=== PATIENT | female | born 1955 | race African-American/Black ===

== ENCOUNTER 2017-05-27 11:40 | Inpatient (IN) | payer MEDICARE, MEDICAID ==
[~2017-05-27] VITALS: Ht 154.9 cm; Wt 99.8 kg
[~2017-05-27 11:40] MED LIST: AMLO5TAB4 PO; AMOX500T2 PO; DIAZ10TA4 PO; GLIM1TAB2; HYDR12.529 PO; LOSA50TA20 PO; METF500T4 PO; MIRT15TA6 PO; POTA10CA42; QUET25TA PO; TRAM50TA3 PO; ZOLP5TAB2
[2017-05-27 13:37] LABS: BASOPHILS % 0.5 % (0.0-2.0); EOSINOPHILS % 0.3 % (0.0-5.0); HEMATOCRIT. 43.2 % (36.0-48.0); HEMOGLOBIN. 14.4 g/dL (12.0-16.0); LYMPHOCYTES % 40.6 % (20.0-50.0); MEAN PLATELET VOLUME 9.1 fl (7.4-10.4); MONOCYTES % 10.1 % (2.0-8.0); NEUTROPHILS % 48.5 % (40.0-76.0); PLATELET 187 x1000/uL (130-400); RED BLOOD CELL COUNT 5.14 mill/uL (4.2-5.4); RED CELL DISTRIBUTION WIDTH 13.9 % (11.6-14.6)
[2017-05-27 13:52] LABS: CARBON DIOXIDE 27 mEq/L (21-32); CHLORIDE 101 mEq/L (98-107)
[2017-05-27 20:00] VITALS: BP_SYST 134; BP_SYST 98; BP_DIAS 49; BP_DIAS 84
[2017-05-27] MEDS ORDERED: GLIP5TAB12 PO (21:22)
[2017-05-27] MEDS ORDERED: ZOLPIDEM TARTRATE 5MG TABLET PO PRN (22:15)
[2017-05-27] MEDS ORDERED: ASPI-1159 PO (22:24)
[2017-05-27] MEDS ORDERED: CLONIDINE 0.1MG TABLET PO PRN (22:27)
[2017-05-27] MEDS: BLOOD SUGAR DIAGNOSTIC STRIP TEST SCH (22:27)
[2017-05-27] MEDS ORDERED: MORPHINE SULFATE 4 MG/ML CPJ (NOT FOR IM USE) IV PRN (22:27)
[2017-05-27] MEDS ORDERED: IPRATROPIUM/ALBUTEROL 0.5-3(2.5)MG/3ML NEB HHN PRN (22:28)
[2017-05-27] MEDS ORDERED: ONDANSETRON HCL 4MG/2ML VIAL IV PRN (22:28)
[2017-05-27] MEDS ORDERED: POTASSIUM CHLORIDE 20MEQ TABLET SR PO NR (22:29)
[2017-05-27] MEDS ORDERED: DEXTROSE 50% WATER 50ML SYRINGE IV PRN (22:30)
[2017-05-27] MEDS: INSULIN LISPRO 100 UNITS/ML SUBCUT SCH (22:56)
[2017-05-28] VITALS: BP 118/74
[2017-05-28 00:09] LABS: CREATINE KINASE MB FRACTION 1.2 ng/mL (0.5-3.6); TROPONIN I 0.07 ng/mL (0.00-0.04)
[2017-05-28 04:00] VITALS: BP 112/75
[2017-05-28 06:46] LABS: BASOPHILS % 0.2 % (0.0-2.0); EOSINOPHILS % 0.3 % (0.0-5.0); HEMATOCRIT. 39.2 % (36.0-48.0); HEMOGLOBIN. 12.8 g/dL (12.0-16.0); LYMPHOCYTES % 38.1 % (20.0-50.0); MEAN CORPUSCULAR HEMOGLOBIN 27.6 pg (28.0-32.0); MEAN CORPUSCULAR VOLUME 84.3 fL (81.0-99.0); MEAN PLATELET VOLUME 9.3 fl (7.4-10.4); MONOCYTES % 11.6 % (2.0-8.0); NEUTROPHILS % 49.8 % (40.0-76.0); PLATELET 176 x1000/uL (130-400); RED BLOOD CELL COUNT 4.65 mill/uL (4.2-5.4); RED CELL DISTRIBUTION WIDTH 13.7 % (11.6-14.6)
[2017-05-28 07:15] LABS: CARBON DIOXIDE 27 mEq/L (21-32); CREATINE KINASE 102 IU/L (26-192); CREATINE KINASE MB FRACTION 0.8 ng/mL (0.5-3.6); HDL CHOLESTEROL 35 mg/dL (40-59); LDL CHOLESTEROL 97 mg/dL (5-100); TROPONIN I 0.06 ng/mL (0.00-0.04)
[2017-05-28] MEDS ORDERED: GLIPIZIDE 5MG TABLET PO SCH (07:40)
[2017-05-28 07:57] LABS: CHLORIDE 101 mEq/L (98-107)
[2017-05-28 08:00] VITALS: BP 110/73
[2017-05-28] MEDS ORDERED: METFORMIN HCL 850MG TABLET PO SCH (08:10)
[2017-05-28] MEDS: BLOOD SUGAR DIAGNOSTIC STRIP TEST SCH ×2 (08:26→12:49)
[2017-05-28] MEDS: INSULIN LISPRO 100 UNITS/ML SUBCUT SCH ×2 (08:32→13:38)
[2017-05-28] MEDS ORDERED: ENOXAPARIN 40MG/0.4ML SYR SUBCUT SCH (09:00)
[2017-05-28] MEDS ORDERED: ENOXAPARIN 30MG/0.3ML SYR SUBCUT SCH (09:00)
[2017-05-28] MEDS ORDERED: LOSARTAN POTASSIUM 50 MG TABLET PO SCH (09:00)
[2017-05-28] MEDS ORDERED: ASPIRIN 81MG EC TABLET PO SCH (09:00)
[2017-05-28] MEDS ORDERED: AMLODIPINE 5MG TABLET PO SCH (09:00)
[2017-05-28] MEDS ORDERED: HYDROCHLOROTHIAZIDE 12.5MG CAPSULE PO SCH (09:00)
[2017-05-28 12:00] VITALS: BP 131/73
[2017-05-28 13:15] VITALS: BP 141/72
== END 2017-05-28 13:40 | disposition home or self-care (01) | DRG 305 ==
LOC: ER 12:14 → EDBEDREQ 15:28 → 7WST 16:07 → EDBEDREQ 16:17 → ENRESERV 17:06
PROVIDERS: ADMIT Hospitalist; ATTEND Hospitalist
DX: I16.0 Hypertensive urgency (principal); E11.65 Type 2 diabetes mellitus with hyperglycemia; R07.89 Other chest pain; I10 Essential (primary) hypertension; Z79.2 Long term (current) use of antibiotics; Z79.899 Other long term (current) drug therapy; Z90.49 Acquired absence of other specified parts of digestive tract
CPT/HCPCS: 36415; 71010; 80048; 80053; 80061; 82550; 82553; 82962; 84484; 85025; 93005; 93306; 99285; J1650; J1815

== ENCOUNTER 2018-08-06 15:02 | Emergency (ER) | payer MEDICARE, MEDICAID ==
[~2018-08-06] VITALS: Ht 154.9 cm; Wt 100.0 kg
[~2018-08-06 15:02] MED LIST changes: +ASPI-1159 PO; +GLIP5TAB12 PO; +METF-414 PO; -METF500T4 PO
[2018-08-06 20:20] LABS: BASOPHILS % 0.4 % (0.0-2.0); EOSINOPHILS % 0.3 % (0.0-5.0); HEMATOCRIT. 41.5 % (36.0-48.0); HEMOGLOBIN. 13.8 g/dL (12.0-16.0); LYMPHOCYTES % 46.3 % (20.0-50.0); MEAN CORPUSCULAR VOLUME 84.4 fL (81.0-99.0); MEAN PLATELET VOLUME 9.3 fl (7.4-10.4); MONOCYTES % 9.9 % (2.0-8.0); NEUTROPHILS % 43.1 % (40.0-76.0); PLATELET 198 x1000/uL (130-400); RED BLOOD CELL COUNT 4.92 mill/uL (4.2-5.4); RED CELL DISTRIBUTION WIDTH 14.1 % (11.6-14.6)
[2018-08-06 20:28] LABS: CHLORIDE 104 mEq/L (98-107)
[2018-08-06 21:17] VITALS: BP 133/90
== END 2018-08-06 21:26 | disposition home or self-care (01) ==
LOC: ER 15:02
DX: E11.65 Type 2 diabetes mellitus with hyperglycemia (principal); J06.9 Acute upper respiratory infection, unspecified; Z90.49 Acquired absence of other specified parts of digestive tract; Z79.82 Long term (current) use of aspirin
CPT/HCPCS: 36415; 80048; 82962; 99283

== ENCOUNTER 2019-07-02 09:40 | Emergency (ER) | payer OTHER, MEDICARE, MEDICAID ==
[~2019-07-02] VITALS: Ht 154.9 cm; Wt 98.0 kg
[~2019-07-02 09:40] MED LIST changes: -ASPI-1159 PO; +ASPI-1393 PO; -LOSA50TA20 PO; +LOSA50TA41 PO
[2019-07-02 09:54] VITALS: BP 161/84
[2019-07-02 12:41] LABS: HEPATITIS B SURFACE AB > 1000.0 mIU/mL
[2019-07-02 12:51] LABS: HEPATITIS B SURFACE ANTIGEN NEGATIVE
[2019-07-04 04:07] LABS: HIV SCREEN 4G Non Reactive (Non Reactive)
== END 2019-07-02 11:50 | disposition home or self-care (01) ==
LOC: ER 10:03
DX: S60.931A Unspecified superficial injury of right thumb, initial encounter (principal); I10 Essential (primary) hypertension; E11.9 Type 2 diabetes mellitus without complications; Z90.49 Acquired absence of other specified parts of digestive tract; W46.1XXA Contact with contaminated hypodermic needle, initial encounter; Y93.89 Activity, other specified; Y92.89 Other specified places as the place of occurrence of the external cause; Y99.8 Other external cause status; Z98.890 Other specified postprocedural states
CPT/HCPCS: 36415; 87389; 99283

== ENCOUNTER 2021-12-14 09:29 | Emergency (ER) | payer BC, MEDICAID ==
[~2021-12-14] VITALS: Ht 154.9 cm; Wt 100.0 kg
[~2021-12-14 09:29] MED LIST changes: -ASPI-1393 PO; +ASPI-1497 PO; +GLIM1TAB; -GLIM1TAB2; +MIRT-89 PO; -MIRT15TA6 PO
[2021-12-14] MEDS ORDERED: BO1 TP (10:58)
[2021-12-14 11:17] VITALS: BP 161/91
== END 2021-12-14 12:00 | disposition home or self-care (01) ==
LOC: ER 11:59
DX: R60.9 Edema, unspecified (principal); E11.9 Type 2 diabetes mellitus without complications; I10 Essential (primary) hypertension; Z90.49 Acquired absence of other specified parts of digestive tract; S80.862A Insect bite (nonvenomous), left lower leg, initial encounter; W57.XXXA Bitten or stung by nonvenomous insect and other nonvenomous arthropods, initial encounter; Y93.89 Activity, other specified; Y92.89 Other specified places as the place of occurrence of the external cause; Y99.8 Other external cause status; Z79.899 Other long term (current) drug therapy
CPT/HCPCS: 99282